=== PATIENT | female | born 1970 | race Caucasian/White ===

== ENCOUNTER 2020-10-23 19:22 | Emergency (ER) | payer OTHER, SELFPAY ==
--- NOTE | ~2020-10-23 | CT_ITS ---
EXAMINATION: CT brain wo con INDICATION: Headache and dizziness COMPARISON: None TECHNIQUE: Standard unenhanced head CT. The dose-length product (DLP) was 605.33 mGy-cm. The mA was a djusted according to patient size. Iterative reconstruction technique was employed. FINDINGS: There is no intracranial hemorrhage, acute infarction, or abnormal mass lesion. The ventric les are normal. There is no abnormal mass effect or midline shift. The durand-white matter differentiat ion is normal. The basal cisterns are patent. The orbits are normal. The paranasal sinuses, mastoids and calvarium are normal. IMPRESSION: 1. No acute intracranial abnormality. Reviewed, dictated and finalized at location A. CHAIN PULLER
[2020-10-23 19:26] VITALS: BP 135/95; PULSE 71; RESP 18; TEMP 36.4; O2SAT 99
--- NOTE | 2020-10-23 19:52 | ECG_ITS ---
Measurements Intervals [place] Rate: 53 P: 34 MS: 158 QRS: 12 QRSD: 79 T: 18 QT: 419 QTc: 395 Interpretive Statements SINUS BRADYCARDIA VOLTAGE CRITERIA FOR LVH T WAVE ABNORMALITY IN ANTERIOR LEADS- CONSIDER ISCHEMIA ABNORMAL ECG Electronically Signed On 10-24-2020 6:55:29 [employer] HOUSE OPER[employer] by Chadd Tinajero D.O.
[2020-10-23 20:56] LABS: Basophils Absolute Auto 0.1 K/mm3 (0.0-0.1); Eosinophils Absolute Auto 0.8 K/mm3 (0-0.3); Eosinophils Percent Auto 11.3 % (0-4.4); Hematocrit 39.9 % (37.0-47.0); Hemoglobin 13.8 g/dL (12.0-15.0); Immature Granulocyte Absolute 0.01 K/mm3 (0.00-0.031); Immature Granulocyte Percent A 0.1 % (0-0.5); Lymphocytes Absolute Auto 2.65 K/mm3 (0.9-3.2); Lymphocytes Percent Auto 36.2 % (18.3-44.2); Mean Corpuscular HGB Conc 34.6 g/dl (32-36); Mean Corpuscular Hemoglobin 31.8 pg (26-34); Mean Corpuscular Volume 91.9 fl (80-100); Monocytes Absolute Auto 0.5 K/mm3 (0.1-0.6); Monocytes Percent Auto 7.4 % (2.6-8.5); Neutrophils Absolute Auto 3.2 K/mm3 (1.3-6.7); Platelet Count Result 310 k/mm3 (150-375); Red Blood Count 4.34 M/mm3 (4.2-5.4); Red Cell Distribution Width 11.8 % (11.5-14.5); White Blood Count 7.3 K/mm3 (4.5-10.0)
--- NOTE | 2020-10-23 20:57 | ED.DIZZY ---
HPI - Dizziness General Chief Complaint: Dizziness Stated Complaint: Dizziness Time Seen by Provider: 10/23/20 19:37 History of Present Illness HPI Narrative: Patient is a 49-year-old female who presents ER with dizziness. Reports she has been feeling motion sickness over the last 5 days that is not typical of her vertigo over if she is spinning. It is worse when she goes from a sitting to laying position. It is associate with nausea. 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 She reports increased pressure in that ear associated with this lightheadedness. No fevers or chills or sweats. Also noticed that her blood pressure got up to 190 systolic earlier in the day and was concerned it may be related. No chest pain or chest pressure. She reports her left arm felt funny 3 to 4 days ago but cannot describe anything additional relating to that arm. Related Data Home Medications Medication Instructions Recorded Confirmed ergocalciferol (vitamin D2) 1,250 mcg PO DAILY 10/23/20 10/23/20 fenofibrate nanocrystallized 48 mg PO DAILY 10/23/20 10/23/20 fluoxetine 20 mg PO DAILY 10/23/20 10/23/20 levothyroxine [Synthroid] 75 mcg PO DAILY 10/23/20 10/23/20 meloxicam 7.5 mg PO DAILY 10/23/20 10/23/20 omeprazole 40 mg PO DAILY 10/23/20 10/23/20 triamterene-hydrochlorothiazid 5 tablet PO DAILY 10/23/20 10/23/20 Allergies Allergy/AdvReac Type Severity Reaction Status Date / Time ascorbic acid Allergy Mild Rash Verified 10/23/20 21:03 folic acid Allergy Mild Rash Verified 10/23/20 21:03 vitamin B complex Allergy Mild Rash Verified 10/23/20 21:03 monosodium glutamate Allergy Unknown Unknown Verified 10/23/20 21:03 Review of Systems Review of Systems: All systems reviewed & are unremarkable except as noted in HPI and below Constitutional: Constitutional: Denies chills, Denies fever(s) and Denies weakness ENT: Reports dizziness, Denies nasal congestion and Denies sore throat Cardiovascular: Cardiovascular: Denies chest pain and Denies rapid heart rate Gastrointestinal: Gastrointestinal: Denies abdominal pain, Reports nausea and Denies vomiting Neurologic: Reports dizziness, Denies headache(s), Denies focal weakness and Denies numbness PMFSH Past Medical History Medical History (Updated 10/23/20 @ 23:09 by Davian Gramajo MD) Endolymphatic hydrops of right ear Hypertension Hypothyroidism Migraines Surgical History Surgical History (Updated 10/23/20 @ 23:05 by Davian Gramajo MD) No pertinent past surgical history Social History Social History (Updated 10/23/20 @ 23:05 by Davian Gramajo MD) Smoking status: Never smoker Exam Narrative: Exam Narrative: GENERAL: Well-appearing, well-nourished, and in no acute distress. HEAD: Normocephalic, atraumatic. EYES: PERRL and EOMI. ENT: TMs normal in appearance bilaterally. Ear canals free of cerumen. CHEST: Clear to auscultation. No respiratory distress. HEART: Regular rate and rhythm. Normal peripheral pulses. EXTREMITIES: Normal range of motion. No edema. NEURO: No focal deficits. Alert and oriented x3. PSYCH: Normal mood and affect. Course Course Emergency Course: Patient informed of results. Recommend scheduled meclizine for home. Recommend follow-up with her primary ENT. Vital Signs Vital signs: Vital Signs Temperature 97.5 F L 10/23/20 19:26 Pulse Rate 71 10/23/20 19:26 Respiratory Rate 18 10/23/20 19:26 Blood Pressure 135/95 H 10/23/20 19:26 Pulse Oximetry 99 10/23/20 19:26 Temperature 97.5 F L 10/23/20 19:26 Pulse Rate 48 L 10/23/20 22:27 Respiratory Rate 18 10/23/20 22:27 Blood Pressure 137/67 10/23/20 22:27 Pulse Oximetry 99 10/23/20 22:27 MDM - Dizziness Lab Data Result diagrams: 10/23/20 20:52 10/23/20 20:52 Labs: Lab Results 10/23/20 10/23/20 Range/Units 20:52 20:52 WBC 7.3 (4.5-10.0) K/mm3 RBC 4.34 (4.2-5.4) M/mm3 Hgb 13.8 (12.0-15.0) g
[2020-10-23] MEDS: SODIUM CHLORIDE 0.9% IV 1,000 ML 999 ML IV CONT (21:02)
[2020-10-23] MEDS: MECLIZINE HCL 25 MG TABLET PO (21:02)
[2020-10-23 21:08] LABS: Anion Gap 7 mmol/L (8-16); Blood Urea Nitrogen 18 mg/dL (7-17); Calcium 9.7 mg/dL (8.4-10.2); Carbon Dioxide 28 mmol/L (22-30); Chloride 104 mmol/L (98-107); Estimated CRCL calculation 87 ml/min; Estimated Glomerular Filt Rate > 60; Glucose 116 mg/dL (65-105); Potassium 3.4 mmol/L (3.4-5.0); Sodium 139 mmol/L (137-145)
[2020-10-23 21:20] LABS: Troponin I < 0.012 ng/mL (0.000-0.034)
[2020-10-23] MEDS: KETOROLAC 30 MG/ML VIAL (*BKC) IV PUSH (22:25)
[2020-10-23 22:27] VITALS: BP 137/67; PULSE 48; RESP 18; O2SAT 99
[2020-10-24 00:22] VITALS: BP 107/72; PULSE 57; RESP 18; O2SAT 100
--- NOTE | 2020-11-06 15:38 | PC.NURSE ---
LATE ENTRY This note is being entered to document information to the patient's record. The following information was omitted on [10/23/20], by [Mukesh Cortez].NS stop time is 2200.
== END 2020-10-24 00:31 | disposition home or self-care (01) ==
PROVIDERS: Emergency Provider Emergency Medicine; PCP Internal Medicine
DX: H81.399 Other peripheral vertigo, unspecified ear (principal); I10 Essential (primary) hypertension; E03.9 Hypothyroidism, unspecified; R00.1 Bradycardia, unspecified; R94.31 Abnormal electrocardiogram [ECG] [EKG]
CPT/HCPCS: 36415; 70450; 80048; 84484; 85025; 93005; 96361; 96374; 99284; A9270; J1885; J7030

== ENCOUNTER 2022-07-06 05:50 | Emergency (ER) | payer OTHER, SELFPAY ==
[2022-07-06] VITALS (20 sets, daily range): BP systolic 104–141; BP diastolic 74–95; PULSE 57–78; RESP 14–18; TEMP 36.6; O2SAT 98–100
--- NOTE | ~2022-07-06 | XR_ITS ---
EXAMINATION: XR chest 1V portable DATE: 07/06/2022 06:18 INDICATION: Palpitations. TECHNIQUE: A single frontal view of the chest was obtained. COMPARISON: Chest 2 views 12/27/2016 FINDINGS: There is no pneumonia, pleural effusion, or pneumothorax. The heart size is normal. IMPRESSION: 1. No acute cardiopulmonary disease. Reviewed, dictated and finalized at location A.
--- NOTE | 2022-07-06 05:53 | ECG_ITS ---
Measurements Intervals [place] Rate: 79 P: 44 [place]: 151 QRS: 33 QRSD: 74 T: 17 QT: 350 QTc: 401 Interpretive Statements SINUS RHYTHM MODERATE ST DEPRESSION [0.05+ mV ST DEPRESSION] COMPARED TO ECG 10/23/2020 19:40:03 THE PATIENT IS NO LONGER BRADYCARDIC. THE PREVIOUSLY NOTED T-WAVE INVERSION HAS RESOLVED BUT THE ANTERIOR LATERAL ST DEPRESSION PERSISTS. Electronically Signed On 07-06-2022 13:39:45 CDT by Meenu Geller M.D.
[2022-07-06 06:33] LABS: Basophils Absolute Auto 0.1 K/mm3 (0.0-0.1); Basophils Percent Auto 1.1 % (0.2-1.2); Eosinophils Absolute Auto 0.3 K/mm3 (0-0.3); Hematocrit 40.9 % (37.0-47.0); Immature Granulocyte Absolute 0.01 K/mm3 (0.00-0.031); Immature Granulocyte Percent A 0.2 % (0-0.5); Lymphocytes Absolute Auto 2.93 K/mm3 (0.9-3.2); Lymphocytes Percent Auto 45.6 % (18.3-44.2); Mean Corpuscular HGB Conc 34.2 g/dl (32-36); Mean Corpuscular Hemoglobin 32.6 pg (26-34); Mean Corpuscular Volume 95.1 fl (80-100); Mean Platelet Volume 9.8 fl (7.4-10.4); Monocytes Absolute Auto 0.5 K/mm3 (0.1-0.6); Monocytes Percent Auto 7.2 % (2.6-8.5); Neutrophils Absolute Auto 2.6 K/mm3 (1.3-6.7); Neutrophils Percent Auto 40.9 % (45.5-73.1); Platelet Count Result 305 k/mm3 (150-375); Red Cell Distribution Width 12.1 % (11.5-14.5); White Blood Count 6.4 K/mm3 (4.5-10.0)
[2022-07-06 06:46] LABS: Alanine Aminotransferase 14 U/L (6-35); Albumin Level 4.2 g/dL (3.5-5.1); Alkaline Phosphatase 46 U/L (38-126); Anion Gap 7 mmol/L (8-16); Aspartate Amino Transferase 21 U/L (14-36); Bilirubin,Total 0.5 mg/dL (0.2-1.3); Blood Urea Nitrogen 16 mg/dL (7-17); Calcium 8.4 mg/dL (8.4-10.2); Carbon Dioxide 29 mmol/L (22-30); Chloride 103 mmol/L (98-107); Estimated CRCL calculation 77 ml/min; Estimated Glomerular Filt Rate > 60; Glucose 95 mg/dL (65-110); Lipase 166 U/L (23-300); Potassium 3.8 mmol/L (3.4-5.0); Sodium 139 mmol/L (137-145)
[2022-07-06 06:47] LABS: Prothrombin Time 12.4 Seconds (11.1-14.7)
[2022-07-06 06:48] LABS: Partial Thromboplastin Time 30.6 SECONDS (22.3-36.8)
[2022-07-06 06:58] LABS: Troponin I < 0.012 ng/mL (0.000-0.034)
[2022-07-06 07:11] LABS: Appearance Urine Clear (Clear); Bilirubin Urine Negative (Negative); Blood Urine Negative (Negative); Color Urine Yellow (Yellow); Glucose Urine UA Negative (Negative); Ketones Urine Negative (Negative); Leukocyte Esterase Ur Trace LEU/UL (Negative); Nitrate Urine Negative (Negative); Protein Urine Negative (Negative); Urobilinogen Urine 0.2 mg/dL (<2.0)
[2022-07-06 07:16] LABS: Bacteria Urine Trace /hpf; Mucus Urine Rare /lpf; Squamous Epithelial Cell Urine Rare /hpf (Few); WBC Urine 0-3 /hpf
[2022-07-06 07:17] LABS: Add Urine Microscopic? YES
--- NOTE | 2022-07-06 07:40 | ED.ARRPALP ---
HPI - Arrhythmia/Palpitations General Chief Complaint: Arrhythmia/Palpitations Stated Complaint: I think I'm in afib. Time Seen by Provider: 07/06/22 06:18 History of Present Illness HPI narrative: 51-year-old female presents because she had woken up from a nightmare earlier today around 5 AM and started feeling like her heart was racing, after some time the symptoms did not improve so she came to the ER. She felt like her rhythm was irregular, she states that this has happened in the past but never this persistent. Since arriving to the emergency room and being roomed, the symptoms have resolved. 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 Related Data Home Medications Medication Instructions Recorded Confirmed ergocalciferol (vitamin D2) 1,250 1,250 mcg PO DAILY 10/23/20 10/23/20 mcg (50,000 unit) capsule fenofibrate nanocrystallized 48 mg 48 mg PO DAILY 10/23/20 10/23/20 tablet fluoxetine 20 mg capsule 20 mg PO DAILY 10/23/20 10/23/20 levothyroxine 75 mcg tablet 75 mcg PO DAILY 10/23/20 10/23/20 (Synthroid) meloxicam 7.5 mg tablet 7.5 mg PO DAILY 10/23/20 10/23/20 omeprazole 40 mg capsule,delayed 40 mg PO DAILY 10/23/20 10/23/20 release triamterene 37.5 5 tablet PO DAILY 10/23/20 10/23/20 mg-hydrochlorothiazide 25 mg tablet Allergies Allergy/AdvReac Type Severity Reaction Status Date / Time ascorbic acid Allergy Mild Rash Verified 10/23/20 21:03 folic acid Allergy Mild Rash Verified 10/23/20 21:03 vitamin B complex Allergy Mild Rash Verified 10/23/20 21:03 monosodium glutamate Allergy Unknown Unknown Verified 10/23/20 21:03 Review of Systems Review of Systems: CONST: No fever. HEENT: No sore throat C/V: No chest pain, does feel palpitations RESP: No difficulty breathing GI: Nausea : No dysuria. M/S: No joint pain. SKIN: No rash. NEURO: [No headache or focal numbness or weakness] PSYCH: Slight stress PMFSH Past Medical History Medical History Endolymphatic hydrops of right ear Hypertension Hypothyroidism Migraines Surgical History Surgical History No pertinent past surgical history Social History Social History Smoking status: Never smoker Exam Narrative: EXAMINATION OF ORGAN SYSTEMS/BODY AREAS: Constitutional: Vital signs per nursing GENERAL:[No acute distress, non-toxic appearing.] HEAD: Normal with no signs of head trauma. EYES: EOMI, conjunctiva normal ENT: Hearing grossly intact LUNGS: Nonlabored breathing. HEART: [Regular rate and rhythm] ABD: [Soft], [nontender to palpation] EXT: Normal range of motion SKIN: [No rashes or lesions.] NEURO: [Alert and oriented x 3. No gross focal sensory or strength deficits.] PSYCH: Normal affect Course Vital Signs Vital signs: Vital Signs Temperature 97.9 F 07/06/22 05:55 Pulse Rate 78 07/06/22 05:55 Respiratory Rate 18 07/06/22 05:55 Blood Pressure 141/95 H 07/06/22 05:55 Pulse Oximetry 100 07/06/22 05:55 Oxygen Delivery Room Air 07/06/22 05:55 Temperature 97.9 F 07/06/22 05:55 Pulse Rate 78 07/06/22 08:32 Respiratory Rate 18 07/06/22 05:55 Blood Pressure 121/76 07/06/22 08:32 Pulse Oximetry 98 07/06/22 08:32 Oxygen Delivery Room Air 07/06/22 05:55 MDM - Arrhythmia/Palpitations MDM Narrative Medical decision making narrative: ED COURSE AND MEDICAL DECISION MAKIN-year-old female presenting with palpitations without chest pain, which has resolved. EKG done in triage negative for arrhythmia or acute ischemic changes. Cardiac workup is initiated. HEART score is 0 with no acute ischemic changes on EKG and negative troponin making AC
[2022-07-06 09:37] LABS: Troponin I < 0.012 ng/mL (0.000-0.034)
--- NOTE | 2022-07-10 13:48 | WPDHOLTEREM ---
Holter/Event Monitor Holter/Event Monitor Date of procedure: 07/06/22 Holter/Event Procedure: 48 Hr Holter Monitor Indications: Palpitations Conclusion: 1. 48 hour holter monitor on 07/06/22. 2. Predominant rhythm is sinus rhythm. HR range 45-145 bpm; average HR 70 bpm. 3. There are 54 premature supraventricular complexes and 4 supraventricular couplets. There are 4 episodes of atrial tachycardia, fastest at 179 bpm and longest lasting 8 beats. 4. There are 2 premature ventricular complexes. No ventricular tachycardia. 5. No sinoatrial or atrioventricular blocks. No significant pauses greater than 2 seconds. 6. Patient reports symptoms of flutter, rapid heart rate, lightheadedness which demonstrate sinus rhythm, HR range 83-133 bpm.
== END 2022-07-06 10:01 | disposition home or self-care (01) ==
PROVIDERS: Emergency Medicine; Emergency Provider Emergency Medicine; PCP Internal Medicine
DX: R00.2 Palpitations (principal); I10 Essential (primary) hypertension; E03.9 Hypothyroidism, unspecified
CPT/HCPCS: 36415; 71045; 80053; 81001; 81025; 83690; 83735; 84443; 84484; 85025; 85610; 85730; 93005; 93225; 93226; 99284